=== PATIENT | female | born 1975 | race Caucasian/White ===

== ENCOUNTER 2021-09-28 04:14 | Day surgery (SDC) | payer OTHER ==
[2021-09-23 15:45] VITALS: BMI 30.7
[2021-09-28] MEDS ORDERED: MIDAZOLAM HCL 2 MG/2 ML SINGLE DOSE VIAL ONE (07:35)
[2021-09-28] MEDS ORDERED: ONDANSETRON 4 MG/2 ML VIAL IVPUSH PRN (07:42)
[2021-09-28] MEDS ORDERED: IBUPROFEN 800 MG/8 ML IJ IVPB PRN (07:42)
[2021-09-28] MEDS ORDERED: IBUPROFEN 600 MG TABLET (FP) PO PRN (07:42)
[2021-09-28] MEDS ORDERED: oxyCODONE HCL 5 MG TABLET PO PRN (07:42)
[2021-09-28] MEDS ORDERED: ELECTROLYTE-148 SOLN 1,000 ML IV SCH (07:45)
[2021-09-28] MEDS ORDERED: PROPOFOL 20 ML ONE (07:46)
[2021-09-28] MEDS ORDERED: ONDANSETRON 4 MG/2 ML VIAL ONE (08:16)
[2021-09-28] MEDS ORDERED: DEXAMETHASONE SOD PHOSPHATE 4 MG/1 ML VIAL ONE (08:16)
[2021-09-28] MEDS ORDERED: KETOROLAC TROMETHAMINE 30 MG/1 ML VIAL ONE (08:16)
[2021-09-28] MEDS ORDERED: PROMETHAZINE HCL 25 MG/1 ML VIAL IVPUSH PRN (08:36)
[2021-09-28] MEDS ORDERED: ACETAMINOPHEN 1000 MG/100 ML BAG IVPB PRN (08:37)
[2021-09-28] MEDS ORDERED: LACTATED RINGERS SOLUTION 1,000 ML IV SCH (08:45)
[2021-09-28] MEDS ORDERED: ACETAMINOPHEN INJECTION 100 ML IVPB ONE (09:09)
[2021-09-28 11:50] VITALS: BP 128/77; PULSE 68; TEMP 98
== END 2021-09-28 11:05 | disposition home or self-care (01) ==
LOC: JASU-SURG 04:14
PROVIDERS: ATTEND Obstetrics & Gynecology
PROC: 0UDB7ZX Extraction of Endometrium, Via Natural or Artificial Opening, Diagnostic (ICD-10-PCS; 2021-09-28)
PROC: 0UB98ZX Excision of Uterus, Via Natural or Artificial Opening Endoscopic, Diagnostic (ICD-10-PCS; principal; 2021-09-28 07:30)
DX: N92.1 Excessive and frequent menstruation with irregular cycle (principal); N84.0 Polyp of corpus uteri
CPT/HCPCS: 81025; 88305-TC; 94760